=== PATIENT | male | born 1970 | race Caucasian/White ===

== ENCOUNTER 2017-03-17 21:19 | Observation (INO) | payer OTHER ==
--- NOTE | ~2017-03-17 | DS ---
Discharge Summary [facility] [address] [place]. [address] NAME: CHOLO SERRANO : 74 STATUS : DIS Zainab PAT#: [id number] AGE: 47 ADM/REG DATE : 03/17/17 MR#: [id number] REPORT SERV DATE: 03/20/17 DICTATED BY: ESTEPHANIA CHAUDHRY DATE: 03/19/17 REPORT STATUS : Draft TRANSCRIBED BY: MODL DATE: 03/19/17 ADMISSION DATE: 03/17/2017 DISCHARGE DATE: 03/18/2017 DISCHARGE DIAGNOSES: 1. Left lower dental abscess with cellulitis. 2. Gastroesophageal reflux disease. 3. Left mandibular area pain secondary to abscess and cellulitis. 4. Depression. 5. Anxiety disorder. 6. Mild hyponatremia likely secondary to decreased p.o. intake due to pain. HOSPITAL COURSE: The patient is a 47-year-old male, who presented to [facility] ER after being seen by his dentist, Dr. Irene, where he underwent minor I and D in his office for his left lower dental abscess. The patient was admitted for observation where he received empiric treatment of IV Zosyn and vancomycin. The patient was seen by Dr. Carlson, ENT, and had referred patient to Dr. Iverson, who has been a previous oral surgeon for the patient. Dr. Iverson did order for the patient to undergo a CT for further evaluation of his dental abscess, however, the patient refused this. GEOSPATIAL ANALYST had called Dr. Irene, which discussed the patient's case and had agreed that the patient will need Dr. Iverson to further evaluate regarding his abscess. Call Dr. Iverson's office and was informed by Dr. Iverson's nurse that Dr. Iverson will be able to see the patient in his office as soon as the patient is discharged from [facility]. The patient had agreed with this plan and the patient had been discharged from [facility] and will directly be seen by Dr. Iverson in his office. The patient was not discharged with any form of antibiotic. He will resume his home meds after being cleared by Dr. Iverson. The patient was instructed to have nothing by mouth on his way to Dr. Iverson's office. The patient and mother had agreed with the plan and discharge instruction was given by nurse. The patient was discharged to home in route to Dr. Iverson, Oral Surgeon, prior to home. DICTATED BY: ESTHER Dexter/ROSEMARYL Estephania Chaudhry M.D. / [id number] CC: Isabell Ospina
--- NOTE | ~2017-03-17 | HP ---
History And Physical [place] [id number] [facility] [place]. [address] NAME: CHOLO DAVE : 74 STATUS : DIS Zainab PAT#: [id number] AGE: 47 ADM/REG DATE : 03/17/17 MR#: [id number] REPORT SERV DATE: 03/18/17 DICTATED BY: ESTEPHANIA CHAUDHRY DATE: 03/18/17 REPORT STATUS : Draft TRANSCRIBED BY: MODL DATE: 03/18/17 DATE OF ADMISSION: 03/17/2017 CHIEF COMPLAINT: Left mouth pain, drainage, and infection. HISTORY OF PRESENT ILLNESS: The patient is a 47 years old male, who was seen by Dr. Irene, his dentist on 03/16/2017, and underwent outpatient minor I and D for left mandibular abscess. The patient reports that he was instructed by Dr. Dave to go to [facility] for further evaluation and treatment of his abscess. The patient reports he has had infection and pain on his left mouth and cheek that had been followed by Dr. Irene. He reports this has been going on for the last 3 weeks but his pain and swelling has worsened and had seen Dr. Irene yesterday. The patient reports that since the patient underwent I and D from Dr. Irene yesterday, his pain has resolved and his swelling has improved. The patient was informed that Dr. Iverson had ordered for a CT scan, but refused this today. PAST MEDICAL HISTORY: To include GERD, tobacco abuse, and depression. PAST SURGICAL HISTORY: Tooth extraction in 10/[address] Iverson. SOCIAL HISTORY: The patient lives with his mother. He is single. No children. He works. He smokes approximately 1 pack per day for 21 years. He denies any use of alcohol or illicit drug use. ALLERGIES: 1. HE IS ALLERGIC TO SULFA, CAUSES LIP SWELLING, TINGLING, AND ITCHING. 2. PROTONIX. 3. . WAS TOLD BY GI DOCTOR TO AVOID. CODE STATUS: Full code. REVIEW OF SYSTEMS: The patient denies any runny nose, cough, or fever. He reports having had swelling, pain on his left side of his mouth and face that has been going on in the last three weeks, treated by Dr. Irene as well as his primary care physician Dr. Moris Floyd which he received hydrocodone for his pain. The patient reports that the hydrocodone only helped a little bit with this pain. The patient denies any chest pain or shortness of breath. The patient reports having history of GERD but denies any abdominal pain. The patient reports his last BM was 3 days ago. He reports his oral intake has been minimal secondary to his oral pain. The patient denies any issue with his hands and feet and he walks without any complaints. The patient reports history of depression. He denies any history of anxiety. He takes History And Physical [address] [place]. [address] NAME: CHOLO DAVE : 74 STATUS : DIS Zainab PAT#: [id number] AGE: 47 ADM/REG DATE : 03/17/17 MR#: [id number] REPORT SERV DATE: 03/18/17 DICTATED BY: ESTEPHANIA CHAUDHRY DATE: 03/18/17 REPORT STATUS : Draft TRANSCRIBED BY: ABUNDIO DATE: 03/18/17 Deborah and Jonathan. The patient denies any history of seizure. He denies any issue with bleeding. He takes ibuprofen and Naprosyn for his pain. PHYSICAL EXAMINATION: VITAL SIGNS: Temperature 97.9, pulse 92, respiratory rate 18, and blood pressure 164/95, O2 saturation of 94, weight of 93.89, BMI of 28.1. LABORATORY STUDY: On 03/17/2017, sodium 132, potassium 3.9, chloride 96, CO2 of 27, BUN 12, creatinine of 0.83, glucose of 109 and GFR of 106. WBC of 12.7, hemoglobin 15.3, hematocrit 42.8, and platelet of 359. AST 17, bilirubin of 0.7, total protein of 8.1, ALT of 35, albumin 3.6, and ALP of 104. ASSESSMENT: 1. Left lower molar dental abscess with cellulitis. 2. Gastroesophageal reflux disease. 3. Left mandibular pain secondary to abscess and cellulitis. 4. Depression. 5. Anxiety disorder. 6. Mild hyponatremia, likely secondary to poor p.o. intake. PLAN: 1. Appreciate Dr. Carlson's consult. Reviewed his note. Refer the patient to Dr. Iverson. Dr. Iverson was informed, ordered for a CT this morning with contrast of his maxillofacial; however, the patient refused, called and spoke with Dr. Irene, who is the patient's dentist and agreed with discharging to the patient to see Dr. Iverson at his office as soon as he is discharged from the hospital. The patient is in agreement with following up with Dr. Iverson, oral surgeon this morning once discharged from the hospital. Call Dr. Iverson's office to ensure the patient will be seen as soon as he leaves the hospital and this was confirmed. Discussed this with the patient as well as with the patient's mother. The patient is aware of the importance of seeing Dr. Iverson once he leaves the hospital. The patient is aware of high risk of sepsis if does not proceed with his followup appointment with Dr. Iverson as soon as he leaves the hospital. 2. Instructed the patient to remain n.p.o. until he is cleared by Dr. Iverson. He can continue his home regimen except for his ibuprofen and his Naprosyn unless cleared by Dr. Iverson after his surgery. 3. Patient with mild hyponatremia. His admission sodium was 32, but this will likely improve once the patient's oral intake has improved. He will need to have followup with his PCP. Discussed discharge instructions with the patient's nurse. The patient will be discharged today directly to see Dr. Iverson. DICTATED BY: Sheridan Muniz NP CLP/MODL History And Physical [address] [address] NAME: CHOLO DAVE : 74 STATUS : DIS Zainab PAT#: [id number] AGE: 47 ADM/REG DATE : 03/17/17 MR#: [id number] REPORT SERV DATE: 03/18/17 DICTATED BY: ESTEPHANIA CHAUDHRY DATE: 03/18/17 REPORT STATUS : Draft TRANSCRIBED BY: MODL DATE: 03/18/17 Estephania Chaudhry M.D. / [id number] CC: Isabell Ospina
[2017-03-17 21:33] LABS: BASOPHILS 0.3 %; BASOPHILS ABSOLUTE 0.04 10/3/uL (0.0-0.16); EOSINOPHILS 2.4 %; EOSINOPHILS ABSOLUTE 0.31 10/3/uL (0.0-0.53); ER CBC TAT 0 Hrs 07 Mins; HEMATOCRIT 42.8 % (40.0-51.0); HEMOGLOBIN 15.3 g/dL (13.6-17.8); IMMATURE GRANULOCYTES 0.4 %; IMMATURE GRANULOCYTES ABSOLUTE 0.05 10/3/uL (0.0-0.11); LYMPHOCYTES 15.2 %; LYMPHOCYTES ABSOLUTE 1.93 10/3/uL (0.67-4.30); MANUAL DIFF NO %; MEAN CORPUS HGB CONC 35.7 g/dL (32.0-36.0); MEAN CORPUSCULAR HEMOGLOB 30.2 pg (26.0-34.0); MEAN CORPUSCULAR VOLUME 84.6 fL (80-100); MEAN PLATELET VOLUME 10.3 fL (9.2-13.0); MONOCYTES 8.7 %; MONOCYTES ABSOLUTE 1.11 10/3/uL (0.21-1.20); NEUTROPHILS ABSOLUTE 9.25 10/3/uL (2.02-8.40); PLATELET COUNT 359 10/3/uL (150-400); RBC DISTRIBUTION WIDTH 12.4 % (12.0-16.0); RED CELL COUNT 5.06 10/6/uL (4.7-6.1); WHITE BLOOD CELLS 12.7 10/3/uL (4.5-10.5)
[2017-03-17 21:46] LABS: A/G RATIO 0.8 (0.7-1.9); ALBUMIN 3.6 G/DL (3.5-5.0); ALKALINE PHOSPHATASE 104 U/L (45-117); BUN (BLOOD UREA NITROGEN) 12 MG/DL (6-23); CALCIUM, SERUM 9.4 MG/DL (8.5-10.4); CHLORIDE, SERUM 96 MMOL/L (96-112); CO2 (CARBON DIOXIDE) 27 MMOL/L (24-34); CREATININE 0.83 MG/DL (0.70-1.30); GFR AFRICAN AMERICAN 123 ML/MIN (>=60); GFR NON AFRICAN AMERICAN 106 ML/MIN (>=60); GLOBULIN 4.5 G/DL (2.5-4.1); GLUCOSE, SERUM 109 MG/DL (60-99); POTASSIUM, SERUM 3.9 MMOL/L (3.5-5.3); SGOT(AST) 17 U/L (5-40); SGPT(ALT) 35 U/L (5-65); SODIUM, SERUM 132 MMOL/L (135-148); TOTAL BILIRUBIN 0.7 MG/DL (0-1.2); TOTAL PROTEIN 8.1 G/DL (6.0-8.5)
[2017-03-17] MEDS ORDERED: IBU800 PO (21:50)
[2017-03-17] MEDS ORDERED: NORCO1 TAB PO (21:51)
[2017-03-17] MEDS ORDERED: NAP500 PO (21:51)
[2017-03-17] MEDS ORDERED: V2 PO (21:51)
[2017-03-17] MEDS ORDERED: PREV15 PO (21:52)
[2017-03-17] MEDS ORDERED: BUSPAR15 M1 PO (21:52)
[2017-03-17] MEDS ORDERED: LEXAPRO20 PO (21:52)
[2017-03-18] MEDS ORDERED: NORCO1 TAB PO (16:40)
[2017-03-19] MEDS ORDERED: AUG875 PO (11:02)
[2017-03-19] MEDS ORDERED: PCET PO (11:03)
== END 2017-03-18 10:58 | disposition home or self-care (01) ==
LOC: ER 21:19 → CDU1 22:00
PROVIDERS: Emergency Medicine
DX: K04.7 Periapical abscess without sinus (principal); K12.2 Cellulitis and abscess of mouth; K21.9 Gastro-esophageal reflux disease without esophagitis; R68.84 Jaw pain; E87.1 Hypo-osmolality and hyponatremia; F32.9 Major depressive disorder, single episode, unspecified; F41.9 Anxiety disorder, unspecified; F17.210 Nicotine dependence, cigarettes, uncomplicated; Z88.2 Allergy status to sulfonamides; Z88.8 Allergy status to other drugs, medicaments and biological substances; Z79.1 Long term (current) use of non-steroidal anti-inflammatories (NSAID); Z79.899 Other long term (current) drug therapy
CPT/HCPCS: 80053; 85025; 87040; 87070; 87205; 96372; 96374; 96375; 96376; 99284; G0378; J2543; J3370